=== PATIENT | female | born 1995 ===

== ENCOUNTER 2022-06-09 03:35 | Emergency (ER) | payer SELFPAY ==
[2022-06-09 05:04] LABS: Basophils % (Auto) 0.2 % (0.0-1.8); Eosinophils % (Auto) 0.3 % (0.0-4.3); Hematocrit 37.1 % (30.3-42.9); Hemoglobin 11.8 gm/dl (10.1-14.3); Mean Corpuscular HGB Conc 32 % (30-34); Mean Corpuscular Volume 81 fl (79-97); Monocytes # (Auto) 0.3 K/mm3 (0.0-0.8); Monocytes % (Auto) 3.5 % (0.0-7.3); Platelet Count 275 K/mm3 (140-440); Red Blood Count 4.58 M/mm3 (3.65-5.03); Red Cell Distribution Width 14.8 % (13.2-15.2)
[2022-06-09 05:13] LABS: BUN/Creatinine Ratio 14; Blood Urea Nitrogen 13 mg/dL (7-17); Calcium 9.1 mg/dL (8.4-10.2); Hemolysis Index 8
[2022-06-09] MEDS ORDERED: ONDANSETRON 4 MG ODT TAB PO ONE (08:15)
[2022-06-09] MEDS ORDERED: SODIUM CHLORIDE 0.9% 1000 ML 1,000 ML IV ONE (08:15)
[2022-06-09] MEDS ORDERED: MORPHINE 4 MG/1 ML INJ IM ONE (08:37)
--- NOTE | 2022-06-09 10:25 | Ultrasound Report ---
Pelvic Ultrasound HISTORY: vaginal bleeding. TECHNIQUE: Grayscale and color imaging performed. COMPARISON: None FINDINGS: Transabdominal and endovaginal imaging was performed. Uterus measures 10.5 x 4.4 x 5.9 cm with endometrial echocomplex measuring 4 mm. The ovaries both appear unremarkable with tiny follicles and preserved blood flow. No free fluid. IMPRESSION: Unremarkable exam. Signer Name: Jean Evans MD Signed: 06/09/2022 10:21 AM Workstation Name: [id number]
--- NOTE | 2022-06-09 10:29 | Emergency Department Report ---
ED General Adult HPI - General Chief complaint: Chest Pain Stated complaint: CHEST PAIN AFTER VOMITING Time Seen by Provider: 06/09/22 07:27 Source: patient Mode of arrival: Stretcher Limitations: No Limitations - History of Present Illness Initial comments: 27-year-old female no significant past medical history reports to the ER with lower abdominal pain and vaginal bleeding. Patient reports her bleeding is similar to her menstrual period. Patient reports her menstrual period was last mouth and is currently due for her period to start.. Severity scale (0 -10): 9 - Related Data Previous Rx's Medication Instructions Recorded Last Taken Type Acetaminophen/Codeine [Tylenol 1 tab PO Q6H PRN 2 Days #8 tab 06/09/22 Unknown Rx /Codeine # 3 tab] Ondansetron [Zofran Odt] 4 mg PO Q12HR 3 Days #6 tab.rapdis 06/09/22 Unknown Rx Allergies Allergy/AdvReac Type Severity Reaction Status Date / Time No Known Allergies Allergy Unverified 06/09/22 04:29 ED Review of Systems ROS: Stated complaint: CHEST PAIN AFTER VOMITING Other details as noted in HPI Comment: All other systems reviewed and negative Gastrointestinal: abdominal pain. denies: nausea, vomiting, diarrhea Genitourinary: abnormal menses ED Past Medical Hx - Past Medical History Previous Medical History?: No - Surgical History Past Surgical History?: No - Social History Smoking Status: Never Smoker Substance Use Type: None - Medications Home Medications: Home Medications Medication Instructions Recorded Confirmed Last Taken Type Acetaminophen/Codeine [Tylenol 1 tab PO Q6H PRN 2 Days #8 tab 06/09/22 Unknown Rx /Codeine # 3 tab] Ondansetron [Zofran Odt] 4 mg PO Q12HR 3 Days #6 tab.rapdis 06/09/22 Unknown Rx ED Physical Exam - General Limitations: No Limitations General appearance: alert, in no apparent distress - Head Head exam: Present: atraumatic, normocephalic - Eye Eye exam: Present: normal appearance - ENT ENT exam: Present: mucous membranes moist - Neck Neck exam: Present: normal inspection - Respiratory Respiratory exam: Present: normal lung sounds bilaterally. Absent: respiratory distress - Cardiovascular Cardiovascular Exam: Present: regular rate, normal rhythm. Absent: systolic murmur, diastolic murmur, rubs, gallop - GI/Abdominal GI/Abdominal exam: Present: soft, normal bowel sounds - Extremities Exam Extremities exam: Present: normal inspection - Back Exam Back exam: Present: normal inspection - Neurological Exam Neurological exam: Present: alert, oriented X3 - Psychiatric Psychiatric exam: Present: normal affect, normal mood - Skin Skin exam: Present: warm, dry, intact, normal color. Absent: rash ED Course Vital Signs 06/09/22 06/09/22 03:36 12:55 Temperature 97.4 F L 98.7 F Pulse Rate 112 H 70 Respiratory 18 16 Rate Blood Pressure 150/90 Blood Pressure 132/68 [Right] O2 Sat by Pulse 99 100 Oximetry ED Medical Decision Making - Lab Data Result diagrams: 06/09/22 04:48 06/09/22 04:48 - Radiology Data [facility] [address] [place] [address] Ultrasound Report Signed Patient: GONZALO RAMIREZ MR#: [id number] [birth year] : 1995 Acct:[id number] Age/Sex: 27 / F ADM Date: 06/09/22 Loc: ED Attending Dr: Ordering Physician: LYNETTE SALCEDO NP Date of Service: 06/09/22 Procedure(s): US pelvic complete Accession Number(s): [id number] cc: LYNETTE SALCEDO NP Pelvic Ultrasound HISTORY: vaginal bleeding. TECHNIQUE: Grayscale and color imaging performed. COMPARISON: None FINDINGS: Transabdominal and endovaginal imaging was performed. Uterus measures 10.5 x 4.4 x 5.9 cm with endometrial echocomplex measuring 4 mm. The ovaries both appear unremarkable with tiny follicles and preserved blood flow. No free fluid. IMPRESSION: Unremarkable exam. Signer Name: Jean Evans MD Signed: 06/09/2022 10:21 AM Workstation Name: [id number] Transcribed By: ALYSON Dictated By: Jean Evans MD Electronically Authenticated By: Jean Evans MD Signed Date/Time: 06/09/22 1021 DD/ 1020 TD/TT: - Medical Decision Making 27-year-old female no significant past medical history reports to the ER with lower abdominal pain and vaginal bleeding. Patient reports her bleeding is similar to her menstrual period. Patient reports her menstrual period was last month and is currently due for her period to start. On on physical exam patient has no acute abdominal signs noted. Patient has suprapubic tenderness noted. No other acute signs or symptoms reported. Ultrasound no acute findings noted. CBC CMP unremarkable. Genital exam deferred by patient. Patient informed that due to her history of having irregular periods patient is likely starting her period this time. Patient agrees with plan of care and verbalized understanding. 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 Patient informed if symptoms are to get worse to report back to the ER. Patient is stable for discharge home. Vital Signs 06/09/22 06/09/22 03:36 12:55 Temperature 97.4 F L 98.7 F Pulse Rate 112 H 70 Respiratory 18 16 Rate Blood Pressure 150/90 Blood Pressure 132/68 [Right] O2 Sat by Pulse 99 100 Oximetry Lab Results 06/09/22 06/09/22 06/09/22 Range/Units 04:48 04:48 04:48 WBC 9.5 (4.5-11.0) K/mm3 RBC 4.58 (3.65-5.03) M/mm3 Hgb 11.8 (10.1-14.3) gm/dl Hct 37.1 (30.3-42.9) % MCV 81 (79-97) fl MCH 26 L (28-32) pg MCHC 32 (30-34) % RDW 14.8 (13.2-15.2) % Plt Count 275 (140-440) K/mm3 Lymph % (Auto) 10.0 L (13.4-35.0) % [place] % (Auto) 3.5 (0.0-7.3) % Eos % (Auto) 0.3 (0.0-4.3) % Baso % (Auto) 0.2 (0.0-1.8) % Lymph # (Auto) 1.0 L (1.2-5.4) K/mm3 [place] # (Auto) 0.3 (0.0-0.8) K/mm3 Eos # (Auto) 0.0 (0.0-0.4) K/mm3 Baso # (Auto) 0.0 (0.0-0.1) K/mm3 Seg Neutrophils % 86.0 H (40.0-70.0) % Seg Neutrophils # 8.2 H (1.8-7.7) K/mm3 Sodium 141 (137-145) mmol/L Potassium 3.8 (3.6-5.0) mmol/L Chloride 105.5 (98-107) mmol/L Carbon Dioxide 24 (22-30) mmol/L Anion Gap 15 mmol/L BUN 13 (7-17) mg/dL Creatinine 0.9 (0.6-1.2) mg/dL Estimated GFR > 60 ml/min BUN/Creatinine Ratio 14 % Glucose 123 H (65-100) mg/dL Calcium 9.1 (8.4-10.2) mg/dL HCG, Qual Negative (Negative) Urine Color (Yellow) Urine Turbidity (Clear) Urine pH (5.0-7.0) Ur Specific [place] (1.003-1.030) Urine Protein (Negative) mg/dL Urine Glucose (UA) (Negative) mg/dL Urine Ketones (Negative) mg/dL Urine Blood (Negative) Urine Nitrite (Negative) Urine Bilirubin (Negative) Urine Urobilinogen (<2.0) mg/dL Ur Leukocyte Esterase (Negative) Urine WBC (Auto) (0.0-6.0) /HPF Urine RBC (Auto) (0.0-6.0) /HPF U Epithel Cells (Auto) (0-13.0) /HPF Urine Bacteria (Auto) (Negative) /HPF Urine Mucus /HPF 06/09/22 Range/Units 10:28 WBC (4.5-11.0) K/mm3 RBC (3.65-5.03) M/mm3 Hgb (10.1-14.3) gm/dl Hct (30.3-42.9) % MCV (79-97) fl MCH (28-32) pg MCHC (30-34) % RDW (13.2-15.2) % Plt Count (140-440) K/mm3 Lymph % (Auto) (13.4-35.0) % [place] % (Auto) (0.0-7.3) % Eos % (Auto) (0.0-4.3) % Baso % (Auto) (0.0-1.8) % Lymph # (Auto) (1.2-5.4) K/mm3 [place] # (Auto) (0.0-0.8) K/mm3 Eos # (Auto) (0.0-0.4) K/mm3 Baso # (Auto) (0.0-0.1) K/mm3 Seg Neutrophils % (40.0-70.0) % Seg Neutrophils # (1.8-7.7) K/mm3 Sodium (137-145) mmol/L Potassium (3.6-5.0) mmol/L Chloride (98-107) mmol/L Carbon Dioxide (22-30) mmol/L Anion Gap mmol/L BUN (7-17) mg/dL Creatinine (0.6-1.2) mg/dL Estimated GFR ml/min BUN/Creatinine Ratio % Glucose (65-100) mg/dL Calcium (8.4-10.2) mg/dL HCG, Qual (Negative) Urine Color Yellow (Yellow) Urine Turbidity Hazy (Clear) Urine pH 6.0 (5.0-7.0) Ur Specific [place] 1.021 (1.003-1.030) Urine Protein 30 mg/dl (Negative) mg/dL Urine Glucose (UA) Neg (Negative) mg/dL Urine Ketones Neg (Negative) mg/dL Urine Blood Lg (Negative) Urine Nitrite Neg (Negative) Urine Bilirubin Neg (Negative) Urine Urobilinogen < 2 (<2.0) mg/dL Ur Leukocyte Esterase Neg (Negative) Urine WBC (Auto) 6.0 (0.0-6.0) /HPF Urine RBC (Auto) > 182.0 (0.0-6.0) /HPF U Epithel Cells (Auto) 2.0 (0-13.0) /HPF Urine Bacteria (Auto) 1+ (Negative) /HPF Urine Mucus Few /HPF . Critical care attestation.: If time is entered above; I have spent that time in minutes in the direct care of this critically ill patient, excluding procedure time. ED Disposition Clinical Impression: Vaginal bleeding Abdominal pain Qualifiers: Abdominal location: lower abdomen, unspecified Qualified Code(s): R10.30 - Lower abdominal pain, unspecified Disposition: 01 HOME / SELF CARE / HOMELESS Is pt being admited?: No Condition: Stable Instructions: Abdominal Pain, Adult, Dysfunctional Uterine Bleeding Prescriptions: Acetaminophen/Codeine [Tylenol /Codeine # 3 tab] 1 tab PO Q6H PRN 2 Days #8 tab PRN Reason: Pain , Severe (7-10) Ondansetron [Zofran Odt] 4 mg PO Q12HR 3 Days #6 tab.rapdis Referrals: RANDOLPH VÁZQUEZ MD [Primary Care Provider] - 3-5 Days
[2022-06-09 10:40] LABS: Bilirubin,Urine NEG (Negative); Blood,Urine LG (Negative); Color,Urine Yellow (Yellow); Urobilinogen,Urine < 2 mg/dL (<2.0)
[2022-06-09 10:42] LABS: Bacteria,Urine 1+ /HPF (Negative); Mucus,Urine FEW /HPF; RBC,Urine > 182.0 /HPF (0.0-6.0)
--- NOTE | 2022-06-09 11:55 | Electrocardiograph Report ---
[facility] Test Date: 2022-06-09 Test Time: 04:00:22 Pat Name: GONZALO RAMIREZ Department: Room: Gender: F Data Abstractor: NURSE : 1995 Requested By: ED DOC Order Number: [id number] Reading MD: Lico Castro Measurements Intervals [place] Rate: 112 P: 48 [place]: 161 QRS: 20 QRSD: 70 T: 8 QT: 330 QTc: 451 Interpretive Statements Sinus tachycardia Probable left atrial enlargement Low voltage, precordial leads No previous ECG available for comparison Electronically Signed On 06-09-2022 11:55:31 EDT by Lico Castro
[2022-06-09 12:56] VITALS: BP 132/68
[2022-06-09] MEDS ORDERED: HYDROcodone/ACETAMINOPHEN 5-325 MG TAB PO ONE (13:11)
== END 2022-06-09 14:43 | disposition home or self-care (01) ==
LOC: ED 03:35
DX: N93.9 Abnormal uterine and vaginal bleeding, unspecified (principal); Z79.899 Other long term (current) drug therapy
CPT/HCPCS: 36415; 76830; 76856; 80048; 81001; 84703; 85025; 93005; 96360; 96372; 99284; J2270; J3490; Q0162